=== PATIENT | female | born 1955 | race Caucasian/White ===

== ENCOUNTER 2021-10-23 09:09 | Inpatient (IN) ==
[2021-10-23] MEDS ORDERED: NITROGLYCERIN 2% OINT 1 INCH/GM PACK TOP STA (09:40)
[2021-10-23] MEDS ORDERED: ASPIRIN 325 MG TABLET PO STA (09:40)
[2021-10-23 10:20] LABS: Basophils # 0.1 10*3/uL (0.0-0.2); Basophils % 0.7 % (0.0-0.8); Eosinophils # 0.3 10*3/uL (0.0-0.87); Eosinophils % 2.2 % (0.00-10.9); Hematocrit 38.2 VOL% (35.7-47.0); Hemoglobin 12.8 GM/DL (12.0-16.0); Immature Granulocytes Absolute 0.15 #; Lymphocytes # 1.6 10*3/uL (1.4-4.0); Lymphocytes % 10.3 % (21.3-54.2); Mean Corpuscular HGB Conc 33.5 GM/DL (32-36); Mean Corpuscular Volume 89.3 FL (87-102); Mean Platelet Volume 12.2 FL (9.6-12.0); Monocytes % 4.1 % (1.7-12.7); Neutrophils % 81.7 % (38.7-73.9); Platelet Count 244 T/CUMM (130-400); Red Blood Count 4.28 MC/CUMM (3.8-5.5); Red Cell Distribution Width 13.4 % (9.3-17.3); White Blood Count 15.3 T/CUMM (4-12)
[2021-10-23 10:33] LABS: INR 0.9; PT Patient Result 10.6 SECS (10.5-12.0); Partial Thromboplastin Time 25.8 SECS (23.8-32.1)
[2021-10-23 10:40] LABS: Albumin 3.9 G/DL (3.4-5.0); Bilirubin,Total 0.5 MG/DL (0.20-1.00); Calcium 9.1 MG/DL (8.5-10.1); Osmolality,Calculated 288.1 MOS/KG (273-304); Potassium 4.8 MMOL/L (3.5-5.1); Total Protein 7.7 G/DL (6.4-8.2)
[2021-10-23 11:10] LABS: Bilirubin,Urine Negative (Negative); Blood, Urine Negative (Negative); Glucose,Urine (UA) >=500 mg/dL (Negative); Ketones,Urine Negative (Negative); Mucus,Urine Occasional /LPF (Occasional); Nitrite,Urine Negative (Negative); Protein,Urine 100 MG/DL; RBC,Urine 2 /HPF (0-4); Squamous Epithelial Cell,Urine Occasional /HPF (0-10); Urine Appearance CLEAR (Clear); Urine Color Yellow (Yellow); Urine Specific Gravity 1.018 (1.001-1.035); Urine Urobilinogen < 2.0 EU/DL (0.2-1.0)
[2021-10-23 11:16] LABS: Barbiturates Screen,Urine Negative (Negative); Benzodiazepines Screen,Urine Negative (Negative); Cannabinoid Screen,Urine Negative (Negative); Opiate Screen,Urine Negative (Negative); Phencyclidine Screen,Urine Negative (Negative)
[2021-10-23] MEDS ORDERED: ACETAMINOPHEN 325 MG TABLET PO PRN (11:44)
[2021-10-23] MEDS ORDERED: NITROGLYCERIN SL 0.4 MG TABLET SL PRN (11:44)
[2021-10-23] MEDS ORDERED: MORPHINE 2 MG/1 ML SYRINGE IV PRN (11:44)
[2021-10-23] MEDS ORDERED: DEXTROSE 50% 25 GM/50 ML SYRINGE IV PRN ×2 (11:44)
[2021-10-23] MEDS ORDERED: GLUCAGON 1 MG VIAL IM PRN ×2 (11:44)
[2021-10-23] MEDS ORDERED: ALUM/MAG/SIMETH/LIDO VISC 1:1 30 ML BOTTLE PO PRN (11:44)
[2021-10-23] MEDS ORDERED: ONDANSETRON 4 MG/2 ML VIAL IV PRN (11:44)
[2021-10-23] MEDS ORDERED: hydrALAZINE 20 MG/1 ML VIAL IV PRN (11:48)
[2021-10-23] MEDS ORDERED: ENOXAPARIN 40 MG/0.4 ML SYRINGE SUBCUT SCH (12:00)
[2021-10-23] MEDS ORDERED: INSULIN LISPRO 100 UNIT/ML SUBCUT STA (12:05)
[2021-10-23] MEDS ORDERED: MAGNESIUM SULF RIDER 2 GM/50 ML PREMIX IV PRN (13:56)
[2021-10-23] MEDS ORDERED: diphenhydrAMINE CAP 25 MG CAPSULE PO ONE (13:56)
[2021-10-23] MEDS ORDERED: DIAZEPAM 5 MG TABLET PO ONE (13:56)
[2021-10-23] MEDS ORDERED: POTASSIUM CHLORIDE RIDER 10 MEQ/100 ML PREMIX IV PRN (13:56)
[2021-10-23] MEDS ORDERED: ENOXAPARIN 80 MG/0.8 ML SYRINGE SUBCUT ONE ×2 (14:18→14:29)
[2021-10-23] MEDS ORDERED: MIDAZOLAM 2 MG/2 ML VIAL ONE (14:53)
[2021-10-23] MEDS ORDERED: fentaNYL 100 MCG/2 ML VIAL ONE (14:53)
[2021-10-23] MEDS ORDERED: HEPARIN 5,000 UNIT/1 ML VIAL ONE (15:28)
[2021-10-23] MEDS ORDERED: TIROFIBAN 5,000 MCG/100 ML PREMIX IV ONE (15:29)
[2021-10-23] MEDS ORDERED: TIROFIBAN 5,000 MCG/100 ML PREMIX IV SCH (15:35)
[2021-10-23] MEDS ORDERED: TICAGRELOR 90 MG TABLET ONE ×2 (15:57→16:10)
[2021-10-23] MEDS ORDERED: ASPIRIN CHEW 81 MG TABLET PO ONE (15:58)
[2021-10-23] MEDS: SODIUM CHLORIDE 0.9% 1,000 ML IV SCH (16:35)
[2021-10-23 18:11] LABS: Risk Ratio 4.39; VLDL Cholesterol 18.4 MG/DL
[2021-10-23] MEDS: cilostazoL 50 MG TABLET PO SCH ×2 (19:36→22:10)
[2021-10-23] MEDS: INSULIN LISPRO 100 UNIT/ML SUBCUT SCH ×2 (19:36→20:07)
[2021-10-23] MEDS ORDERED: INSULIN GLARGINE 100 UNIT/ML SUBCUT SCH (21:00)
[2021-10-23] MEDS ORDERED: amLODIPine 5 MG TABLET PO SCH (21:00)
[2021-10-23] MEDS ORDERED: ROSUVASTATIN 20 MG TABLET PO SCH (21:00)
[2021-10-23] MEDS: TICAGRELOR 90 MG TABLET PO SCH (22:10)
[2021-10-23] MEDS: carvediloL 12.5 MG TABLET PO SCH (22:14)
[2021-10-24] MEDS: SODIUM CHLORIDE 0.9% 1,000 ML IV SCH (03:41)
[2021-10-24 06:53] LABS: Basophils # 0.1 10*3/uL (0.0-0.2); Basophils % 0.4 % (0.0-0.8); Eosinophils # 0.2 10*3/uL (0.0-0.87); Eosinophils % 1.1 % (0.00-10.9); Hematocrit 33.2 VOL% (35.7-47.0); Hemoglobin 10.9 GM/DL (12.0-16.0); Immature Granulocytes % 0.9 %; Immature Granulocytes Absolute 0.17 #; Lymphocytes # 1.5 10*3/uL (1.4-4.0); Lymphocytes % 7.6 % (21.3-54.2); Mean Corpuscular HGB Conc 32.8 GM/DL (32-36); Mean Platelet Volume 12.1 FL (9.6-12.0); Platelet Count 204 T/CUMM (130-400); Red Blood Count 3.69 MC/CUMM (3.8-5.5); Red Cell Distribution Width 13.4 % (9.3-17.3); White Blood Count 19.8 T/CUMM (4-12)
[2021-10-24] MEDS ORDERED: LEVOTHYROXINE 50 MCG TABLET PO SCH (07:00)
[2021-10-24 07:10] LABS: Bilirubin,Total 1.1 MG/DL (0.20-1.00); Total Protein 6.4 G/DL (6.4-8.2)
[2021-10-24 07:11] LABS: Potassium 3.2 MMOL/L (3.5-5.1)
[2021-10-24 07:19] LABS: Thyroid Stimulating Hormone 2.11 uIU/ml (0.358-3.74)
[2021-10-24] MEDS ORDERED: POTASSIUM CHLORIDE 20 MEQ TABLET PO ONE (07:20)
[2021-10-24 07:29] LABS: CKMB % 6.5 %
[2021-10-24 07:34] LABS: High Sensitive Troponin I* 55950.5 ng/L (0-54)
[2021-10-24] MEDS: INSULIN LISPRO 100 UNIT/ML SUBCUT SCH ×3 (08:01→16:15)
[2021-10-24] MEDS ORDERED: ASPIRIN 325 MG TABLET PO SCH (09:00)
[2021-10-24] MEDS ORDERED: ASPIRIN CHEW 81 MG TABLET PO SCH (09:00)
[2021-10-24] MEDS ORDERED: ENALAPRIL 10 MG TABLET PO SCH (09:00)
[2021-10-24] MEDS ORDERED: amLODIPine 5 MG TABLET PO SCH (09:00)
[2021-10-24] MEDS ORDERED: hydroCHLOROthiazide 12.5 MG CAPSULE PO SCH (09:00)
[2021-10-24] MEDS ORDERED: PANTOPRAZOLE 40 MG TABLET PO SCH (09:00)
[2021-10-24] MEDS: carvediloL 12.5 MG TABLET PO SCH (09:21)
[2021-10-24] MEDS: cilostazoL 50 MG TABLET PO SCH (09:21)
[2021-10-24] MEDS: TICAGRELOR 90 MG TABLET PO SCH (09:22)
[2021-10-24] MEDS ORDERED: POTASSIUM CHLORIDE 20 MEQ PACK PO ONE (10:58)
[2021-10-24] MEDS ORDERED: MAGNESIUM SULF RIDER 4 GM/100 ML PREMIX IV ONE (10:58)
[2021-10-24] MEDS ORDERED: MAGNESIUM CHLORIDE 64 MG TABLET PO SCH (11:00)
[2021-10-24 16:28] VITALS: BP 111/56
== END 2021-10-24 16:45 | disposition home or self-care (01) | DRG 251 ==
LOC: N.ED 09:09 → N.EDINP 09:09 → SUATTDRO 11:45 → N.TELES 14:09
PROVIDERS: ADMIT Internal Medicine; ATTEND Emergency Medicine
PROC: CLCCHCL (ICD-10-PCS; 2021-10-23 14:45)